=== PATIENT | female | born 1980 | race Two or more races ===

== ENCOUNTER 2024-03-24 08:38 | Outpatient (CLI) | payer OTHER ==
[~2024-03-24 08:38] MED LIST: ADVIL100 MG PO
== END 2024-03-24 08:50 | disposition home or self-care (01) ==
LOC: MAMO-SONO 08:38
DX: Z12.31 Encounter for screening mammogram for malignant neoplasm of breast (principal)

== ENCOUNTER 2024-04-08 09:29 | Outpatient (CLI) | payer OTHER | END 2024-04-08 09:33 | disposition home or self-care (01) | LOC: SONOGRAMA 09:29 | PROVIDERS: ATTEND General Practice | DX: R10.2 Pelvic and perineal pain (principal) ==